=== PATIENT | female | born 1945 | race Caucasian/White ===

== ENCOUNTER 2017-08-01 09:05 | Emergency (ER) | payer MEDICARE ==
[~2017-08-01] VITALS: Ht 157.5 cm; Wt 70.0 kg
[2017-08-01 09:32] VITALS: BP 161/69
[2017-08-01] MEDS ORDERED: EC-NAPROSYN500 MG PO (09:37)
[2017-08-01] MEDS ORDERED: MULTI VIT PO (09:43)
== END 2017-08-01 10:35 | disposition home or self-care (01) ==
LOC: ED 09:05
DX: S93.692A Other sprain of left foot, initial encounter (principal); X50.1XXA Overexertion from prolonged static or awkward postures, initial encounter; Y93.01 Activity, walking, marching and hiking; Y92.828 Other wilderness area as the place of occurrence of the external cause